=== PATIENT | male | born 1995 | race Caucasian/White ===

== ENCOUNTER 2016-07-16 18:33 | Emergency (ER) | payer MEDICAID ==
[~2016-07-16] VITALS: Ht 172.7 cm; Wt 56.5 kg
[~2016-07-16 18:33] MED LIST: HYDR-3498 PO
[2016-07-16 18:41] VITALS: Ht 172.7 cm; Wt 56.5 kg
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
[2016-07-16] MEDS ORDERED: DIPHTH/TET/ACEL PERTUSS (ADULT) 0.5 ML VIAL IM* ONE (20:30)
[2016-07-16] MEDS ORDERED: LIDOCAINE 1% (MDV) 20 ML INJ SC ONE (20:30)
[2016-07-16] MEDS ORDERED: CEPH-443 PO (21:31)
[2016-07-16] MEDS ORDERED: IBUP-1542 PO (21:31)
== END 2016-07-16 21:39 | disposition home or self-care (01) ==
LOC: FTE 18:33
DX: S01.511A Laceration without foreign body of lip, initial encounter (principal); W50.0XXA Accidental hit or strike by another person, initial encounter; Y92.89 Other specified places as the place of occurrence of the external cause; Z23 Encounter for immunization
CPT/HCPCS: 12011; 90471; 90715; Z7502; Z7610